=== PATIENT | male | born 1965 | race Caucasian/White ===

== ENCOUNTER 2017-05-10 05:00 | Inpatient (IN) | payer MEDICARE ==
[~2017-05-10] VITALS: Ht 167.6 cm; Wt 63.2 kg
[2017-05-10] MEDS ORDERED: DIVA500T9 PO (05:34)
[2017-05-10] MEDS ORDERED: OMEP20CA3 PO (05:34)
[2017-05-10] MEDS ORDERED: QUET400T PO (05:34)
[2017-05-10] MEDS ORDERED: LEVO88TA3 PO (05:34)
[2017-05-10] MEDS ORDERED: PHEN125S PO (05:34)
[2017-05-10] MEDS ORDERED: GABA-283 PO (05:34)
[2017-05-10] MEDS ORDERED: LEVOTHYROXINE 88MCG TABLET (0.088 MG) PO SCH (06:00)
[2017-05-10] MEDS ORDERED: DIVA500T3 PO (06:48)
[2017-05-10] MEDS ORDERED: PHEN300C PO (06:48)
[2017-05-10] MEDS ORDERED: GABAPENTIN 400 MG CAP PO ONE (09:00)
[2017-05-10] MEDS ORDERED: PHENYTOIN ER 100 MG CAP PO ONE (09:00)
[2017-05-10] MEDS ORDERED: PHENYTOIN ER 30 MG CAP PO ONE (09:00)
[2017-05-10] MEDS ORDERED: DIVALPROEX 500MG *ER* TAB PO ONE (09:00)
[2017-05-10] MEDS ORDERED: DIVALPROEX 500 MG TAB PO SCH ×4 (09:00→21:00)
[2017-05-10] MEDS ORDERED: VITAMIN D 1,000 INTERNATIONAL UNITS TABLET PO ONE (09:00)
[2017-05-10] MEDS ORDERED: OMEPRAZOLE 20 MG CAP PO SCH (09:00)
[2017-05-10] MEDS ORDERED: MAALOX 30 ML SUSP *UDC PO PRN (09:45)
[2017-05-10] MEDS ORDERED: ACETAMINOPHEN TAB 650MG DOSE (2X325MG) PO PRN (09:45)
[2017-05-10] MEDS ORDERED: MOM 30ML SUSPENSION UDC PO PRN (09:45)
[2017-05-10 12:13] VITALS: BP 125/88
[2017-05-10] MEDS: GABAPENTIN 400 MG CAP PO SCH ×2 (15:34→20:02)
[2017-05-10] MEDS: OMEPRAZOLE 20 MG CAP PO SCH (15:39)
[2017-05-10] MEDS: NICOTINE 21MG/24HR 1 EA TRANSDERMAL TD SCH (16:46)
[2017-05-10 18:00] VITALS: BP 126/76
[2017-05-10] MEDS: traZODone 50 MG TAB PO PRN (20:02)
[2017-05-10] MEDS: DIVALPROEX 500MG *ER* TAB PO SCH (20:02)
[2017-05-10] MEDS: PHENYTOIN ER 100 MG CAP PO SCH (20:03)
[2017-05-10] MEDS: QUEtiapine FUMARATE 200 MG TAB PO SCH (20:03)
--- NOTE | 2017-05-10 21:01 | MHHPE ---
DATE OF ADMISSION: 05/10/2017 DATE OF SERVICE: 05/10/2017 HISTORY OF PRESENT ILLNESS: This is a 51-year-old male who is a and who was transferred from [facility] because they did not have beds available. The patient had gone on Thursday to see his provider and they felt that he was "not acting like himself." The patient keeps stating "I am lost in my brain." He seems to be very preoccupied with garcia Daniel Ragsdale. He keeps saying that he went to see him play once and when I asked him to elaborate on that, he basically told me that I could be Daniel Ragsdale or I could be a fly and I am not sure if this is due to the patient actually being paranoid, but it appeared as though it is. In the emergency room, he talked a few times about thinking that he heard Daniel Ragsdale. The patient also said he was having suicidal thoughts and had thoughts of walking into a sawmill to kill himself. The patient states that he is depressed because he says he is disabled, he is not able to work, and he is in pain. He states that he has problems with chronic back pain due to herniated discs. PAST PSYCHIATRIC HISTORY: It seems that this is his first psychiatric hospitalization. He states that years ago he did cut his wrists, but denied any other episodes of suicidal attempts. FAMILY HISTORY: He said his brother shot himself, but that was after he found out that his had of cancer and he does not know if the brother had psychiatric treatment before that. ABUSE HISTORY: He denies any history of any physical or sexual abuse. SUBSTANCE ABUSE: The patient states that he relapsed in drinking alcohol after he had been sober for 12 years. He is not able to tell me when he relapsed, but then he told me that he stopped drinking recently and it was very hard to pinpoint when that was and then said that he had stopped a few weeks ago, actually 2 weeks ago, and he was drinking up to a case a day of alcohol before that. He denies any problems with abusing any drugs. CURRENT MEDICATIONS: The patient is on: - gabapentin 400 mg three times a day - Seroquel 400 mg nightly - Depakote 1500 mg twice a day - dilantin 300 mg twice a day - Synthroid 88 mcg once daily - and omeprazole 20 mg daily REVIEW OF SYSTEMS: VITAL SIGNS: Blood pressure 125/88, pulse is 75, respirations 20. APPEARANCE: The patient appeared to be quite disheveled and much older than his stated age. NEUROMUSCULAR SYSTEM: There was no involuntary movements noted. The patient was sitting the whole time, so I was not able to evaluate his gait. All other systems were reviewed and found to be negative except for his complaint of chronic back pain. MENTAL STATUS EXAMINATION: This patient is alert and oriented times three. Eye contact is fairly good. The patient appears to be having some delusions and what appears to be auditory hallucinations. He admits to suicidal ideations. Denies homicidal ideations. Concentration is fair. Memory is grossly intact. Insight and judgment is poor. MEDICAL HISTORY: The patient says that he has been diagnosed with traumatic brain injury. He said that he fell in 2003 and he says subsequent to that he developed a seizure disorder and so he has been disabled since then. He has chronic pain due to herniated discs. He has peripheral neuropathy, hypothyroidism, and gastroesophageal reflux disease (GERD). DIAGNOSES: Other specified depressive disorder. Other specified psychotic disorder. Rule out major depressive disorder with psychotic symptoms. TREATMENT PLAN: The patient will be further evaluated for depressive and what appears to be psychotic symptoms and suicidal ideations. Will continue his current medications of Seroquel 400 mg nightly, Depakote 1500 mg twice a day, gabapentin 400 mg three times a day, dilantin 300 mg twice a day, and the Synthroid 88 mcg. He has a seizure disorder, so I suspect that the Depakote and gabapentin is for his seizure disorder. I tried to obtain a better history from the patient to see if maybe this patient has a history of bipolar disorder, but I could not because often he would keep going around and around with Daniel Ragsdale and sometimes when I asked a question, he would just tell me that I could be Daniel Ragsdale, etc. We, therefore, need to try to obtain some more history, maybe from outpatient providers. Of note also, his valproic acid level was only down to 14.3 and dilantin phenytoin level was also pretty low. He tells me that he was taking his medications as prescribed, but I am not sure how reliable he is and so I am going to hold off on adjusting his medications right now until further information is obtained. If, indeed, he has not been compliant with the medications, hopefully just continuing his current medications will help him get stabilized. FARZAD
[2017-05-11] MEDS: LEVOTHYROXINE 88MCG TABLET (0.088 MG) PO SCH (06:08)
[2017-05-11 06:35] VITALS: BP 140/67
[2017-05-11 07:15] LABS: ANION GAP 5 MEQ/L (8-16); BLOOD UREA NITROGEN 13 MG/DL (7-18); CALCIUM LEVEL 8.3 MG/DL (8.5-10.1); CARBON DIOXIDE LEVEL 29 MEQ/L (21-32); CHLORIDE LEVEL 109 MEQ/L (98-107); CREATININE FOR GFR 0.69 MG/DL (0.70-1.30); FREE T4 0.73 NG/DL (0.76-1.46); GLOMERULAR FILTRATION RATE > 60.0 (>56); GLUCOSE, FASTING 93 MG/DL (70-105); POTASSIUM SERUM 4.5 MEQ/L (3.5-5.1); SODIUM LEVEL 143 MEQ/L (136-145)
[2017-05-11] MEDS: PHENYTOIN ER 100 MG CAP PO SCH ×2 (08:51→20:02)
[2017-05-11] MEDS: OMEPRAZOLE 20 MG CAP PO SCH (08:51)
[2017-05-11] MEDS: GABAPENTIN 400 MG CAP PO SCH ×3 (08:51→20:03)
[2017-05-11] MEDS: DIVALPROEX 500MG *ER* TAB PO SCH ×2 (08:51→20:02)
[2017-05-11] MEDS: NICOTINE 21MG/24HR 1 EA TRANSDERMAL TD SCH (08:51)
[2017-05-11] MEDS ORDERED: MULTIVITAMINS/MINERALS THERAP 1 TAB PO ONE (11:15)
[2017-05-11] MEDS: THIAMINE 100 MG TAB PO SCH (12:03)
[2017-05-11] MEDS: FOLIC ACID 1 MG TAB PO SCH (12:03)
[2017-05-11 18:00] VITALS: BP 132/81
--- NOTE | 2017-05-11 19:01 | IPN ---
DATE: 05/11/2017 HISTORY: 51-year-old man transferred from [facility] after an episode that the patient describes as "I fell and hit my head". Patient was found "not acting like himself" stating sentences such as "I am lost in my brain". He was preoccupied with the single Daniel Cervantes and he was reporting that he could hear and see him singing. Patient could not elaborate and gave a good description of his auditory and visual hallucination. He was acting very paranoid. He has a history of a traumatic brain injury (TBI) and seizure disorder as sequela of the above. MEDICATIONS: 1. Dilantin 300 mg by mouth twice a day 2. Depakote ER 1500 mg by mouth twice a day 3. Gabapentin 400 mg by mouth three times a day 4. Trazodone 50 mg by mouth at night as needed for insomnia During the interview today patient reports feeling better. Reports a decrease of auditory and visual hallucinations. He is not as paranoid as he was in the last several days. Patient reported that he still could hear heavy metal songs, at dark and screams and although is less paranoid he continues to feel anxious and scared. Patient denies side effect from the medication. MENTAL STATUS EXAMINATION: Patient dressed in [facility]. Patient is cooperative during the interview. Eye contact is limited. Speech is slow and restricted. Mood is anxious, affect is restricted. As above, patient continues with paranoid delusions and auditory and visual hallucinations. Memory is impaired. Patient is able to contract for safety during the interview and denies suicidal or homicidal ideation. ASSESSMENT: 1. Paranoid delusions. 2. Depression. 3. History of alcohol dependency. PLAN: 1. Start thiamine 100 mg by mouth daily. 2. Start folic acid 200 mg by mouth daily. 3. Multivitamin 1 mg by mouth daily. 4. Seroquel 400 mg by mouth at bedtime. 5. Dilantin 300 mg by mouth twice a day. 6. Depakote ER 1500 mg by mouth twice a day. 7. Neurontin 400 mg by mouth three times a day. 8. Trazodone 50 mg by mouth at night as needed for insomnia. 9. Continue individual and group therapy.
--- NOTE | 2017-05-11 19:47 | HPE ---
DATE OF ADMISSION: 05/10/2017 Please refer to the psychiatric history and evaluation for further details on this admission. This examination and history is intended for medical issues which may need treatment, followup, or consult on this 51-year-old male who was transferred from [facility]. PR[facility] C[facility] [place]. ALLERGIES: ASPIRIN, HALOPERIDOL, KEPPRA, onions. SOCIAL HISTORY: He is . He was drinking a 12-pack per day, he states he quit 1 week ago. Smokes 1-2 packs of cigarettes per day. Recreational drug use: None. PAST MEDICAL HISTORY: Seizure disorder. Chronic back and leg pain, goes to a chiropractor once a week. Hypothyroidism. Gastroesophageal reflux disease (GERD). PAST SURGICAL HISTORY: Repaired fractured femur and pinning. CURRENT MEDICATIONS: - Depakote 1500 mg by mouth twice a day - gabapentin 400 mg by mouth three times a day - levothyroxine 88 mcg by mouth daily - omeprazole 20 mg by mouth daily - Dilantin 300 mg by mouth twice a day - Seroquel 400 mg by mouth nightly LABORATORY STUDIES: From [facility]: White count was 6.7, hemoglobin 15.9, hematocrit 47.4, platelets 294. Sodium 131, potassium 3.1, chloride 92, BUN 3, creatinine 0.991. Toxicology screen was negative. TSH was 0.246 at [facility]. Dilantin level was 7.5. Valproic acid level was 14.3. REVIEW OF SYSTEMS: Ten systems review was done. His only complaint was of a small abrasion on the right side of his forehead which was slightly sore, he had fallen approximately a week ago. Otherwise, chronic back and leg pain as described above. PHYSICAL EXAMINATION: 51-year-old cooperative male in no acute distress. Height 66 inches, weight 63.2 kg, body mass index (BMI) 22.5. Temperature 98.1, blood pressure 136/85, pulse 82, respirations 18. Patient is alert and oriented times three. Pupils equal and reactive to light. Extraocular movements are intact. Cornea and sclerae clear. Conjunctivae is normal. No facial asymmetry. Tympanic membranes (TMs) are pearly bilaterally. Numerous earrings in both oracles. Pharynx, tongue, gums pink and moist. Tongue is midline. NECK: Supple without lymphadenopathy. No thyromegaly. No goiter. Carotids 2+ without bruit. CHEST: Clear to auscultation without wheeze or retraction. HEART: Regular. ABDOMEN: Benign. Bowel sounds positive. GENITOURINARY/RECTAL: Not done. EXTREMITIES: Show equal strength. Full range of motion. No cyanosis, clubbing, or edema. Peripheral pulses equal and palpable bilaterally. SKIN: Warm and dry. Small abrasion the size of a dime right side of his forehead, no redness or drainage. Gait steady. Cranial nerves III-XII grossly intact. IMPRESSION/PLAN: 1. Seizure disorder. Continue Dilantin and Depakote. 2. Chronic leg and back pain. Continued outpatient followup with chiropractor. Continue gabapentin. 3. Hypothyroidism. On Synthroid. Thyroid stimulating hormone (TSH) slightly low. Will get a free T4 and TSH in morning. 4. Hypokalemia. Repeat potassium in morning. 5. Smoking cessation. Nicotine patch offered. No other acute medical issues.
[2017-05-11] MEDS: QUEtiapine FUMARATE 200 MG TAB PO SCH (20:02)
[2017-05-12] MEDS: LEVOTHYROXINE 88MCG TABLET (0.088 MG) PO SCH (05:59)
[2017-05-12 07:09] VITALS: BP 146/84
[2017-05-12] MEDS: NICOTINE 21MG/24HR 1 EA TRANSDERMAL TD SCH (08:26)
[2017-05-12] MEDS: OMEPRAZOLE 20 MG CAP PO SCH (08:27)
[2017-05-12] MEDS: GABAPENTIN 400 MG CAP PO SCH ×3 (08:27→20:06)
[2017-05-12] MEDS: DIVALPROEX 500MG *ER* TAB PO SCH ×2 (08:27→20:06)
[2017-05-12] MEDS: PHENYTOIN ER 100 MG CAP PO SCH ×2 (08:27→20:06)
[2017-05-12] MEDS: FOLIC ACID 1 MG TAB PO SCH (08:27)
[2017-05-12] MEDS: THIAMINE 100 MG TAB PO SCH (08:27)
--- NOTE | 2017-05-12 16:20 | IPN ---
DATE: 05/12/2017 HISTORY: A 51-year-old man transferred from [facility] after an episode that he describes as, "I fell and hit my head." The patient was found, "not acting like himself," stating sentences such as, "I lost in my brain." He was preoccupied with the garcia Daniel Cervantes and he was reporting that he could hear and see him singing. He was acting very paranoid. He has a history of a traumatic brain injury (TBI) and seizure disorder and a long history of alcohol dependency. MEDICATIONS: - dilantin 300 mg by mouth twice a day - Depakote ER 1500 mg by mouth twice a day - gabapentin 400 mg by mouth three times a day - trazodone 50 mg by mouth at bedtime as needed for insomnia SUBJECTIVE: "I have a lot of problems." OBJECTIVE: The patient reports some improvement. The patient's auditory and visual hallucinations have decreased. He is not as paranoid. Denies side effect from the medication. The patient has very poor short-term memory span. He could not remember who was the president before Trump even though I show him a picture, he could not recognize the face of President Milka. MENTAL STATUS EXAMINATION: The patient is dressed in [facility]. The patient is cooperative. He has limited eye contact. Speech is slow and monotone. Mood is anxious. Affect is restricted. The patient continues to have auditory and visual hallucinations and paranoid delusions, although they are improving. Short-term memory is impaired. The patient is able to contract for safety during the interview and denies suicidal or homicidal ideation. Insight and judgment is poor. ASSESSMENT: 1. Paranoid delusions. 2. Depression. 3. Poor short-term memory. 4. History of alcohol dependency. PLAN: 1. Continue thiamine 100 mg by mouth every morning. 2. Continue folic acid 200 mg by mouth daily. 3. Continue multivitamin. 4. Continue Seroquel 400 mg by mouth at bedtime. 5. Continue dilantin 300 mg by mouth twice a day. 6. Continue Depakote ER 1500 mg by mouth twice a day. 7. Continue Neurontin 400 mg by mouth three times a day. 8. Continue trazodone 50 mg by mouth at bedtime as needed for insomnia. 9. Continue medication management, individual and group therapy.
[2017-05-12] MEDS: MULTIVITAMINS/MINERALS THERAP 1 TAB PO SCH (16:30)
[2017-05-12 18:29] VITALS: BP 128/80
[2017-05-12] MEDS: QUEtiapine FUMARATE 200 MG TAB PO SCH (20:06)
[2017-05-12] MEDS: traZODone 50 MG TAB PO PRN (20:06)
[2017-05-13] MEDS: LEVOTHYROXINE 88MCG TABLET (0.088 MG) PO SCH (06:11)
[2017-05-13 06:27] VITALS: BP 125/61
[2017-05-13] MEDS: NICOTINE 21MG/24HR 1 EA TRANSDERMAL TD SCH (08:14)
[2017-05-13] MEDS: DIVALPROEX 500MG *ER* TAB PO SCH (08:15)
[2017-05-13] MEDS: PHENYTOIN ER 100 MG CAP PO SCH (08:16)
[2017-05-13] MEDS: GABAPENTIN 400 MG CAP PO SCH ×2 (08:16→15:44)
[2017-05-13] MEDS: OMEPRAZOLE 20 MG CAP PO SCH (08:17)
[2017-05-13] MEDS: FOLIC ACID 1 MG TAB PO SCH (08:17)
[2017-05-13] MEDS: MULTIVITAMINS/MINERALS THERAP 1 TAB PO SCH (08:18)
[2017-05-13] MEDS: THIAMINE 100 MG TAB PO SCH (08:18)
--- NOTE | 2017-05-13 15:39 | MHDS ---
DATE OF ADMISSION: 05/10/2017 DATE OF DISCHARGE: 05/13/2017 HISTORY OF PRESENT ILLNESS: The following information is according to the initial evaluation of Dr. Lindquist, her progress note, and my own progress note. On admission, Dr. Lindquist wrote this is a 51-year-old male who is a and who was transferred from [facility] because they did not have beds available. The patient had gone on Thursday to see his provider and they felt that he was not "acting like himself." The patient keeps stating "I am lost in my brain." He seems to be preoccupied with garcia Daniel Ragsdale. He keeps saying that he went to see him play once and when I asked him to elaborate on that he basically told me that I could be Daniel Ragsdale or I could be a fly and I am not sure if this is due to the patient actually being paranoid but it appeared as though it is. In the emergency room, he talked a few times about thinking that he heard Danieldevyn Ragsdale. The patient also said that he was having suicidal thoughts and bad thoughts of walking into a sawmill to kill himself. The patient states that he is depressed because he says he is disabled. He is not able to work and he is in pain. He states that he has problems with chronic back pain and herniated discs. LABORATORY DATA AT ADMISSION: Were not drawn since the patient was medically worked up in another facility. On 05/11/2017, he had a BMP which was within normal limits. His free T4 was 0.73, calcium 8.3. HOSPITAL COURSE: The patient was admitted under Dr. Lindquist's care and was started on his previous to admission medications which are Seroquel 400 mg by mouth at bedtime, Dilantin 300 mg by mouth twice a day, Depakote ER 1500 mg by mouth twice a day, Neurontin 400 mg by mouth three times a day. With these medications, the patient was stabilized. I evaluated this patient for the first time on 05/11/2017. During the interview, he told me that he got on probation and he had to stop drinking suddenly. The symptoms that were observed at admission were compatible with alcohol withdrawal. Therefore, I started the patient on thiamine 100 mg by mouth every morning, multivitamins 1 mg by mouth daily, and folic acid 1 mg by mouth daily. After two days, the patient is clear and the above psychotic symptoms disappeared. The patient was denying auditory or visual hallucinations. He was no longer paranoid. He has a long history of traumatic brain injury (TBI) and seizures. His memory is impaired. He has not been able to name or recognize the face of Eros Jarquin, although he knew that the president was Manpreet Bhatt. On 05/13/2017, the patient is at baseline, in a stable condition. A meeting with his sister was held and the patient is felt to be at baseline by the sister who is a nurse and she has been helping the patient all along and is very supportive. Therefore, it was decided to discharge the patient on 05/13/2017. MEDICATIONS AT DISCHARGE: - Seroquel 400 mg by mouth at bedtime - Depakote ER 1500 mg by mouth twice a day - Neurontin 400 mg by mouth three times a day MENTAL STATUS EXAMINATION AT DISCHARGE: The patient is dressed in [facility]. The patient is calm and cooperative. He has fair eye contact. Speech is normal in rate, volume, articulation, is coherent and is spontaneous. Mood is euthymic. Affect is appropriate and congruent with mood. There is no evidence of delusions or hallucinations. Memory is impaired as stated above. Denies suicidal or homicidal ideation. Insight and judgment is limited. DISCHARGE DIAGNOSES: AXIS I: Unspecified psychotic disorder. 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 Alcohol dependency. AXIS: II: Deferred. AXIS: III: Status post traumatic brain injury (TBI). Seizure disorder. Chronic back pain due to herniated discs. Peripheral neuropathy. Hypothyroidism. Gastroesophageal reflux disease (GERD). CONDITION AT DISCHARGE: Stable. No auditory or visual hallucinations. No delusions. No suicidal or homicidal ideation. INSTRUCTIONS TO THE PATIENT: The patient is to continue taking his medications as prescribed and followup appointments. He is advised to maintain absolute sobriety from drugs and alcohol. The patient has scheduled appointments for primary care provider, medication management, and individual psychotherapy.
== END 2017-05-13 16:15 | disposition home or self-care (01) | DRG 881 ==
LOC: M ED 05:00 → EDBD 05:00 → M ED INP 09:32 → M PSY 11:54
PROVIDERS: ADMIT Psychiatry & Neurology Psychiatry; ATTEND Psychiatry & Neurology Psychiatry
DX: F32.9 Major depressive disorder, single episode, unspecified (principal); F10.20 Alcohol dependence, uncomplicated; K21.9 Gastro-esophageal reflux disease without esophagitis; G40.909 Epilepsy, unspecified, not intractable, without status epilepticus; E03.9 Hypothyroidism, unspecified; G60.9 Hereditary and idiopathic neuropathy, unspecified; Z79.899 Other long term (current) drug therapy; E87.6 Hypokalemia; F17.200 Nicotine dependence, unspecified, uncomplicated; M54.5 Low back pain

== ENCOUNTER 2024-08-19 19:27 | Emergency (ER) | payer MEDICARE, OTHER ==
[~2024-08-19] VITALS: Ht 167.6 cm; Wt 63.6 kg
[~2024-08-19 19:27] MED LIST: DIVA500T9 PO; DIVA500T94 PO; GABA-284 PO; LEVO88TA3 PO; OMEP1CAP73 PO; PHEN300C PO; QUET400T2 PO; [UNRECOGNIZED DRUG - CODE] PO
[2024-08-19 20:48] LABS: BASO % 0.3 % (0.0-1.0); EOS # 0.1 10^3/uL (0.0-0.5); EOS % 0.5 % (0.0-3.0); HEMATOCRIT 34.4 % (42.0-52.0); HEMOGLOBIN 10.8 g/dl (13.5-17.5); LYMPH # 1.5 10^3/uL (1.5-5.0); LYMPH % 14.5 % (24.0-44.0); MEAN CORPUSCULAR HEMOGLOBIN 28.1 pg (27.0-33.0); MEAN CORPUSCULAR HGB CONC 31.4 g/dl (32.0-36.5); MEAN CORPUSCULAR VOLUME 89.4 fl (80.0-96.0); MONO # 1.3 10^3/uL (0.0-0.8); MONO % 12.3 % (2.0-8.0); NEUTROPHILS # 7.3 10^3/uL (1.5-8.5); NEUTROPHILS % 72.1 % (36.0-66.0); PLATELET COUNT, AUTOMATED 294 10^3/uL (150-450); RED BLOOD COUNT 3.85 10^6/uL (4.30-6.10); WHITE BLOOD COUNT 10.2 10^3/uL (4.0-10.0)
[2024-08-19 21:04] LABS: BLOOD UREA NITROGEN 15 MG/DL (9-23); CALCIUM LEVEL 9.1 MG/DL (8.5-10.1); CARBON DIOXIDE LEVEL 29 MMOL/L (20-31); CHLORIDE LEVEL 106 MMOL/L (98-107); GLOMERULAR FILTRATION RATE > 60.0 (>56); GLUCOSE, FASTING 100 MG/DL (60-100); MAGNESIUM LEVEL 1.6 MG/DL (1.8-2.4); POTASSIUM SERUM 4.3 MMOL/L (3.5-5.1); SODIUM LEVEL 141 MMOL/L (136-145)
[2024-08-19] MEDS: MAGNESIUM OXIDE 400MG TAB (MAG-OX) PO ONE (21:30)
[2024-08-19 21:37] VITALS: TEMP 96.6
[2024-08-19] MEDS ORDERED: MAGN400T2 PO (22:08)
[2024-08-19] MEDS: ATORVASTATIN 20 MG TAB PO ONE (22:37)
[2024-08-19] MEDS: GABAPENTIN 100 MG CAP PO ONE (22:37)
[2024-08-19] MEDS: DIVALPROEX 250MG *ER* TAB PO ONE (22:37)
[2024-08-19] MEDS: PHENYTOIN ER 100 MG CAP PO ONE (22:37)
[2024-08-19 23:40] VITALS: BP 121/66; O2SAT 95
== END 2024-08-19 23:46 | disposition home or self-care (01) ==
LOC: M ED 19:27 → EDBD 19:27 → M ED 23:46
DX: I10 Essential (primary) hypertension (principal); G40.909 Epilepsy, unspecified, not intractable, without status epilepticus; K21.9 Gastro-esophageal reflux disease without esophagitis; F17.200 Nicotine dependence, unspecified, uncomplicated; Z87.820 Personal history of traumatic brain injury; Z88.6 Allergy status to analgesic agent; Z88.8 Allergy status to other drugs, medicaments and biological substances; Z91.018 Allergy to other foods; Z79.899 Other long term (current) drug therapy

== ENCOUNTER 2024-10-31 13:52 | Emergency (ER) | payer OTHER ==
[~2024-10-31 13:52] MED LIST changes: +MAGN400T2 PO
[2024-10-31 14:02] VITALS: TEMP 95.9
[2024-10-31 15:04] LABS: VALPROIC ACID (DEPAKOTE) 64.6 UG/ML (50.0-100.0)
[2024-10-31 15:08] LABS: PHENYTOIN (DILANTIN) 4.7 UG/ML (10.0-20.0)
[2024-10-31] MEDS ORDERED: SENN-53 PO (15:46)
[2024-10-31] MEDS ORDERED: GABA-1171 (15:46)
[2024-10-31] MEDS ORDERED: THIA100TA PO (15:46)
[2024-10-31] MEDS ORDERED: LIDO5DIS41 TOP (15:46)
[2024-10-31] MEDS ORDERED: ATOR40TA75 (15:46)
[2024-10-31] MEDS ORDERED: FAMO1TAB11 PO (15:46)
[2024-10-31] MEDS ORDERED: LEVO330T6 (15:46)
[2024-10-31] MEDS ORDERED: LORA1TAB23 (15:46)
[2024-10-31] MEDS ORDERED: CLOB10TA3 (15:46)
[2024-10-31] MEDS ORDERED: ALBU1.25 NEB (15:46)
[2024-10-31] MEDS ORDERED: LEVO50TA5 (15:46)
[2024-10-31] MEDS ORDERED: DIVA250T7 (15:46)
[2024-10-31] MEDS ORDERED: MELA5CAP2 PO (15:46)
[2024-10-31] MEDS ORDERED: DILA100C PO ×2 (15:46→17:22)
[2024-10-31] MEDS ORDERED: [UNRECOGNIZED DRUG - CODE] (15:46)
[2024-10-31] MEDS ORDERED: LACT20EL PO (15:46)
[2024-10-31] MEDS ORDERED: TAMS1CAP17 (15:46)
[2024-10-31] MEDS: PHENYTOIN 100MG/2ML VIAL IV ONE (15:50)
[2024-10-31] MEDS ORDERED: DIVA250T7 PO (17:22)
[2024-10-31] MEDS ORDERED: CLOB10TA3 PO (17:22)
[2024-10-31 21:15] VITALS: BP 167/99; O2SAT 95
== END 2024-10-31 21:10 | disposition home or self-care (01) ==
LOC: M ED 13:52 → EDBD 13:52 → M ED 21:10
DX: G40.309 Generalized idiopathic epilepsy and epileptic syndromes, not intractable, without status epilepticus (principal); R89.2 Abnormal level of other drugs, medicaments and biological substances in specimens from other organs, systems and tissues; K21.9 Gastro-esophageal reflux disease without esophagitis; F17.200 Nicotine dependence, unspecified, uncomplicated; Z87.820 Personal history of traumatic brain injury; Z88.6 Allergy status to analgesic agent; Z88.8 Allergy status to other drugs, medicaments and biological substances; Z91.018 Allergy to other foods; Z79.52 Long term (current) use of systemic steroids; Z79.02 Long term (current) use of antithrombotics/antiplatelets; Z79.899 Other long term (current) drug therapy
CPT/HCPCS: 80164; 80185; 96374; 99284; J1165

== ENCOUNTER 2024-11-17 09:01 | Emergency (ER) | payer OTHER ==
[~2024-11-17 09:01] MED LIST changes: +ALBU1.25 NEB; +ATOR40TA75 PO; +CLOB10TA3; +CLOB10TA3 PO; +DILA100C PO; +DIVA250T7; +DIVA250T7 PO; +FAMO1TAB11 PO; +GABA-1171 PO; +LACT20EL PO; +LEVO330T6 PO; +LEVO50TA5 PO; +LIDO5DIS41 TOP; +LORA1TAB23 PO; +MELA5CAP2 PO; +SENN-53 PO; +TAMS1CAP17 PO; +THIA100TA PO; +[UNRECOGNIZED DRUG - CODE] IM
[2024-11-17 11:00] LABS: AMPHETAMINES LEVEL URINE NEGATIVE (NEGATIVE)
[2024-11-17 11:01] LABS: BARBITURATES URINE NEGATIVE (NEGATIVE); CANNABINOIDS URINE NEGATIVE (NEGATIVE); COCAINE METABOLITE URINE NEGATIVE (NEGATIVE); METHADONE URINE NEGATIVE (NEGATIVE); OPIATES URINE NEGATIVE (NEGATIVE); PHENCYCLIDINE URINE NEGATIVE (NEGATIVE)
[2024-11-17 11:06] LABS: BENZODIAZEPINES URINE POSITIVE (NEGATIVE)
[2024-11-17 11:25] LABS: HEMATOCRIT 41.9 % (42.0-52.0); HEMOGLOBIN 12.8 g/dl (13.5-17.5); MEAN CORPUSCULAR HEMOGLOBIN 28.1 pg (27.0-33.0); MEAN CORPUSCULAR HGB CONC 30.5 g/dl (32.0-36.5); MEAN CORPUSCULAR VOLUME 91.9 fl (80.0-96.0); PLATELET COUNT, AUTOMATED 172 10^3/uL (150-450); RED BLOOD COUNT 4.56 10^6/uL (4.30-6.10)
[2024-11-17 11:53] LABS: PHENYTOIN (DILANTIN) 12.3 UG/ML (10.0-20.0)
[2024-11-17 11:54] LABS: ETHYL ALCOHOL (ETHANOL) 0.006 % (0.000-0.010); VALPROIC ACID (DEPAKOTE) 42.1 UG/ML (50.0-100.0)
[2024-11-17 11:56] LABS: ALBUMIN 3.9 G/DL (3.2-5.2); ALKALINE PHOSPHATASE 110 U/L (40-129); ALT/SGPT 32 U/L (7.0-40); AST/SGOT 12 U/L (<34); BILIRUBIN,DIRECT < 0.1 MG/DL (<0.4); BILIRUBIN,TOTAL < 0.2 MG/DL (0.3-1.2); BLOOD UREA NITROGEN 18 MG/DL (9-23); CALCIUM LEVEL 9.4 MG/DL (8.5-10.1); CARBON DIOXIDE LEVEL 28 MMOL/L (20-31); CHLORIDE LEVEL 103 MMOL/L (98-107); CREATININE FOR GFR 0.78 MG/DL (0.70-1.30); GLOMERULAR FILTRATION RATE > 90.0 (>56); GLUCOSE, FASTING 103 MG/DL (60-100); POTASSIUM SERUM 4.3 MMOL/L (3.5-5.1); SALICYLATE LEVEL < 3.0 MG/DL (<30); SODIUM LEVEL 141 MMOL/L (136-145); TOTAL PROTEIN 7.6 G/DL (5.7-8.2)
[2024-11-17 11:57] LABS: THYROID STIMULATING HORMONE 1.246 uIU/ML (0.55-4.78)
[2024-11-17] MEDS ORDERED: PHEN50TA3 PO (12:45)
[2024-11-17] MEDS ORDERED: PHEN100C PO (12:45)
[2024-11-17] MEDS ORDERED: CLOB10TA3 PO (12:45)
[2024-11-17] MEDS ORDERED: NICO4GUM8 PO (12:45)
[2024-11-17] MEDS ORDERED: APAP325T4 PO (12:45)
[2024-11-17] MEDS ORDERED: DIVA250T7 PO (12:45)
[2024-11-17] MEDS ORDERED: HOME MED LIST COMPLETE! XX SCH (12:50)
[2024-11-17] MEDS: DIVALPROEX 250MG *ER* TAB PO SCH (13:13)
[2024-11-17] MEDS: PHENYTOIN ER 100 MG CAP PO SCH (13:54)
[2024-11-17 14:19] VITALS: BP 140/62; TEMP 97.7; O2SAT 95
[2024-11-17] MEDS ORDERED: DIVALPROEX 250MG *ER* TAB PO SCH (21:00)
== END 2024-11-17 14:41 | disposition home or self-care (01) ==
LOC: M ED 09:01
DX: F32.A Depression, unspecified (principal); R45.6 Violent behavior; Z87.820 Personal history of traumatic brain injury; F10.10 Alcohol abuse, uncomplicated; F19.10 Other psychoactive substance abuse, uncomplicated; Z87.891 Personal history of nicotine dependence; Z88.6 Allergy status to analgesic agent; Z88.8 Allergy status to other drugs, medicaments and biological substances; Z91.018 Allergy to other foods; Z79.1 Long term (current) use of non-steroidal anti-inflammatories (NSAID); Z79.51 Long term (current) use of inhaled steroids; Z79.899 Other long term (current) drug therapy